=== PATIENT | male | born 1965 | race Hispanic/Latino ===

== ENCOUNTER 2024-05-14 05:19 | Emergency (ER) | payer BC ==
[~2024-05-14] VITALS: Ht 188 cm; Wt 158.3 kg
[2024-05-14 05:24] VITALS: TEMP 101.2
[2024-05-14] MEDS ORDERED: BENZ-39 PO (05:38)
[2024-05-14] MEDS ORDERED: AUD IH (05:38)
--- NOTE | 2024-05-14 05:39 | ERN ---
ED Note History of Present Illness Stated Complaint: C/O COUGH, SOB, CONGESTION,SORE THROAT X 3 DAYS Chief Complaint: Congestion Time Seen by MD: 05:30 Allergies: Coded Allergies: codeine (Unverified Allergy, Unknown, 05/14/24) Past Medical History Dictation Patient with past medical history of hypertension diabetes presents with four days of nonproductive cough and nasal congestion and sinus pressure. Patient denies fevers, syncope, presyncope, productive cough, chest pain, abdominal pain, nausea, vomiting diaphoresis Past Medical History: High Cholesterol, Hypertension Surgical History: Other Review of System Dictation See HPI Initial Vital Sign VS Vital Signs Date Time Temp Pulse Resp B/P (MAP) Pulse Ox O2 Delivery O2 Flow Rate FiO2 05/14/24 05:24 101.1 81 24 157/92 95 Room Air Physical Exam Dictation Elevated BMI, uncomfortable appearing, nasal congestion, patent airway, no signs of respiratory distress, lungs clear to auscultation, regular heart rate and rhythm, abdomen soft, nontender, non peritoneal ED Course ED Course Orders Procedure Category Date Status Time Ipratropium/Albuterol PHA 05/14/24 Transmitted Neb (Duoneb) 06:00 Vital Signs Date Time Temp Pulse Resp B/P (MAP) Pulse Ox O2 Delivery O2 Flow Rate FiO2 05/14/24 05:24 101.1 81 24 157/92 95 Room Air Medical Decision Making MDM ddx: Pneumonia versus URI versus versus pericarditis Consider chest x-ray and viral swabs. Patient's physical exam consistent with viral illness. Patient has already had symptoms for four days that have not worsened. We will provide breathing treatment. Patient will be discharged home. Upon re-evaluation, patient remains hemodynamically stable with no signs of respiratory distress. Patient improved as breathing treatment. We will prescribe breathing treatment Tessalon Perles. Return precautions given. Invited and answered all questions prior to discharge. DX & DISP Disposition: Discharge Departure Impression: Primary Impression: Acute URI Condition: Stable Scripts Albuterol Sulfate (Albuterol Sulfate) 2.5 Mg/0.5 Ml Vial.neb 2.5 MG IH Q6H for wheezing/sob, #20 INH 0 Refills Prov: ISIS NUNEZ DO 05/14/24 Benzonatate (Tessalon Perles) 100 Mg Cap 100 MG PO TID for cough for 7 Days, #30 CAP 0 Refills Prov: ISIS NUNEZ DO 05/14/24 Additional Instructions: Please return emergency department immediately if you have difficulty breathing, symptoms persist tolerating the 5-7 days, he developed productive cough, chest pain, nausea, vomiting, sweating, sudden loss of consciousness, sudden weakness. Referrals: SELF,REFERRAL ISIS NUNEZ DO May 14, 2024 05:39
[2024-05-14 05:50] LABS: RAPID GROUP A STREP negative (NEGATIVE)
[2024-05-14 05:54] LABS: SARS-CoV-2, RNA, NAAT NEGATIVE SARS CoV-2 (NEGATIVE)
[2024-05-14 05:59] LABS: INFLUENZA TYPE A Negative For Type A (NEGATIVE); INFLUENZA TYPE B Negative For Type B (NEGATIVE)
[2024-05-14 06:10] VITALS: BP 146/92; O2SAT 92
[2024-05-14] MEDS: IpraTROPium/alBUTERol SULFATE 3 ML SOLUTION IH ONE (06:25)
[2024-05-14 06:26] VITALS: PULSE 109; RESP 18
--- NOTE | 2024-05-14 07:01 | NUR ---
REPORT GIVEN TO CASSIDY CALDERON AT THIS TIME
== END 2024-05-14 07:10 | disposition home or self-care (01) ==
LOC: EDH 05:19
DX: J06.9 Acute upper respiratory infection, unspecified (principal); E11.9 Type 2 diabetes mellitus without complications; E78.00 Pure hypercholesterolemia, unspecified; I10 Essential (primary) hypertension; Z20.822 Contact with and (suspected) exposure to COVID-19; Z88.5 Allergy status to narcotic agent; Z98.890 Other specified postprocedural states
CPT/HCPCS: 87635; 87804; 87880; 94640; 99283